=== PATIENT | male | born 1985 | race Caucasian/White ===

== ENCOUNTER 2019-01-14 18:37 | Emergency (ER) | payer OTHER, SELFPAY ==
[2019-01-14 18:38] VITALS: BP 160/100; PULSE 111; RESP 18; TEMP 36.8; O2SAT 99; BMI 26.1
[2019-01-14] MEDS: Ondansetron 4 MG/2 ML Vial IV (19:00)
[2019-01-14] MEDS: Morphine 4 MG/ML Syringe IV ×2 (19:00→19:57)
[2019-01-14] MEDS: Diphth,Pertuss(Acell),Tet Vac 0.5 ML Vial IM (19:08)
[2019-01-14] MEDS: Cefazolin 1 GM/50 ML BAG IV (19:08)
--- NOTE | 2019-01-14 19:15 | ED.VIS.GEN ---
History of Present Illness Chief Complaint: Laceration Informant: Patient, Significant Other Onset: Today Context: Sudden Onset Timing: Continuous Quality: Pain Location: Right long and ring finger Current Severity: Mild Maximum Severity: Moderate Worsened by: Movement Relieved by: Nothing Associated Symptoms: Amputation tips of right long and ring finger Narrative: Patient is a 33-year-old [id number] male who presents with injury to his right long and ring finger. He attempted to clear the [email or web address] shoot because it was clogged. The motor was running. He amputated the tip of his right ring finger and injured the right long finger. Immunization is greater than 10 years. He reports no antibiotic allergy. He reports no other injury. Prior similar symptoms: No Recent Illness/Hospitalization: No - Past Medical History (1) No significant past medical history Status: Acute Past Medical History - Allergies and Home Meds Allergies/Adverse Reactions: Allergies No Known Allergies Allergy (Verified 01/14/19 18:47) Primary Care Physician: Porfirio Hampton DO [STAFF PHYSICIAN] - Prior records reviewed: Yes Lives: Spouse/ Significant Other Smoking Status: Current every day smoker Drugs: None Review of Systems General: Denies: Chills, Fever, Malaise, Subjective, Sweats Gastrointestinal: Reports: Nausea. Denies: Vomiting Musculoskeletal: Reports: Extremity Pain. Denies: Myalgias, Arthralgias, Neck pain, Back pain, Swelling Skin: Reports: Wounds. Denies: Rash Neurological: Denies: Weakness, Parasthesia, Numbness Allergy: Denies: Uticaria, Swelling of the mouth Physical Exam Vital Signs/Narrative: Vital Signs Temp Pulse Resp BP Pulse Ox 01/14/19 18:38 98.3 F 111 H 18 160/100 H 99 Inital Vital Signs reviewed: Yes General: Well nourished, Well developed, Acute Distress Head: Normocephalic, Atraumatic Eyes: Perrl, EOMI. Negative for: Pale conjunctiva, Scleral icterus Neck: Supple, Nontender Cardiovascular: Regular rhythm, No murmurs, Normal S1, Normal S2, Tachycardia Respiratory: No distress, CTA bilaterally Extremities: No edema, - - Amputation distal DIP joint right ring finger. Nail bed injury and avulsion left long finger. The extensor commonest tendon is intact to the right long and ring finger. The flexor digitorum superficialis and flexor digitorum profundus is intact right long finger. The flexor digitorum superficialis intact right ring finger. Unable to assess flexor digitorum profundus on the right ring finger.. Negative for: Nontender Skin: Normal color, Trauma. Negative for: No rash, Cyanosis, Diaphoresis, Jaundice Neurological: Alert, Oriented x3, Cranial nerves II-XII grossly intact, Normal Strength, Normal Sensation Psychological: Normal affect, Normal Mood Diagnostic/Tx/Re-eval Chest X-Ray - ED: Read by ED Physician, - - There is a comminuted distal phalanx fracture right long finger and a comminuted and amputated distal phalanx fracture right ring finger. - Medical Decision Making We will obtain x-ray to delineate extent of injury to the right long and ring finger. Patient received tetanus update and 1 g of Ancef. Median nerve block was placed to control pain. He also received 4 mg of morphine and 4 mg of Zofran IV push. Procedures Procedure(s): Initially a median nerve block was placed. Patient had suboptimal results. For this reason each digit was anesthetized with 1% lidocaine. Once appropriate anesthesia was achieved the wounds were irrigated. Each digit was irrigated with 250 cc of normal saline. The distal phalanx of the right ring finger was trimmed back using a rondure. Able to cover the remaining portion of the distal phalanx. Simple interrupted sutures were placed using 5-0 Ethilon. The long finger was approximated on the radial side. There was no exposure of the distal phalanx. There is significant nailbed injury with avulsion of the nail. ED Disposition - Plan for ED Patient: Diagnosis: Open fracture of distal phalanx of ring finger, Partial traumatic transphalangeal amputation of right ring finger, initial encounter, Open distal phalanx fracture right long, Nail avulsion and nailbed injury right l Instructions: FRACTURE, Finger (Open), NAIL AVULSION, Complete Prescriptions: Cephalexin [Keflex] 500 mg PO 4X/DAY #20 cap Prescription Printed Oxycodone HCl/Acetaminophen [Percocet 5/325] 1 tab PO Q6H PRN PRN 3 Days #12 tab PRN Reason: Pain Prescription Printed Referrals: Porfirio Hampton DO [STAFF PHYSICIAN] - Tor Espinoza MD [STAFF PHYSICIAN] - 2 Days for wound check
--- NOTE | 2019-01-14 19:25 | RAD_ITS ---
STUDY: X-RAY - RIGHT HAND REASON FOR EXAM: Male, 33 years old. Hand caught in lawnmower. Attention third and fourth digits. TECHNIQUE: 3 view(s) of the hand. COMPARISON: None. FINDINGS: Normal radiocarpal articulation. Normal distal radioulnar joint. Normal visualized carpal bones. Normal carpal articulations Normal carpometacarpal articulation of the thumb. Normal second through fifth carpometacarpal joints. Normal metacarpi. Normal metacarpophalangeal joint of the thumb. Normal interphalangeal joint of the thumb. Normal proximal and distal phalanges of the thumb. Normal metacarpophalangeal joints of the second through fifth fingers. Normal proximal and distal interphalangeal joints of the second through fifth fingers. There is a nondisplaced, comminuted fracture of the tuft of the third distal phalanx. A longitudinal component extends to the base of the phalanx, with likely intra-articular extension. There is amputation of the distal fourth digit, with loss of the tuft. Comminuted fragments of the mid shaft are present. The soft tissue structures are unremarkable. RAD/Hand Min 3 Views IMPRESSION: 1. Amputation of the tuft of the fourth distal phalanx with comminuted shaft fragments. 2. Comminuted fracture of the third distal phalanx with a fracture line extending proximally to the articular surface. Electronically Signed: Cornelia Rucker MD at 20:58 EDT Tel , Service support ,
[2019-01-14] MEDS: LORazepam 2 MG/ML Syringe 0.5 MG IV (20:19)
--- NOTE | 2019-01-14 20:32 | ED.RN ---
DR. ANGULO INFORMED OF PT PAIN. NO NEW ORDERS AT THIS TIME WILL CONTINUE TO MONITOR.
[2019-01-14] MEDS: HYDROmorphone 0.5 MG/0.5 ML SYRINGE IV ×3 (20:48→22:45)
[2019-01-14 20:53] VITALS: BP 143/108; PULSE 98; RESP 17; O2SAT 99
[2019-01-14 21:46] VITALS: BP 151/98; PULSE 94; RESP 20; O2SAT 98
[2019-01-14 23:58] VITALS: BP 150/100; PULSE 90; RESP 18; O2SAT 98
[2019-01-15] MEDS: oxyCODONE 5 MG Tablet PO (00:04)
== END 2019-01-15 00:38 | disposition home or self-care (01) ==
PROVIDERS: Emergency Provider Emergency Medicine; Family Provider Family Medicine; PCP Family Medicine
DX: S68.624A Partial traumatic transphalangeal amputation of right ring finger, initial encounter (principal); S62.632B Displaced fracture of distal phalanx of right middle finger, initial encounter for open fracture; W31.89XA Contact with other specified machinery, initial encounter; Y93.H9 Activity, other involving exterior property and land maintenance, building and construction; Y92.9 Unspecified place or not applicable; F17.200 Nicotine dependence, unspecified, uncomplicated
CPT/HCPCS: 26951; 11750; 11760; 73130; 90471; 90715; 96365; 96375; 96376; 99285; J7050; A4216; J2405

== ENCOUNTER → 2020-07-15 09:06 | Outpatient (CLI) | payer BC, SELFPAY ==
[2020-07-15 10:40] LABS: Anion Gap 4 (5-15); BUN 19 mg/dL (7-18); BUN/Creat Ratio 17.3 RATIO (10-20); Chloride 104 mmol/L (98-107); Cholesterol 222 mg/dL (200); EST Glomerular Filtration Rate 82 mL/min (>60); Est Glom Filt Rate - Afr Amer 99 mL/min (>60); Glucose 109 mg/dL (74-106); High Density Lipoprotein 38 mg/dL; Potassium 4.3 mmol/L (3.5-5.1); Sodium Level 136 mmol/L (136-145); Triglycerides 97 mg/dL; Very Low Density Lipoprotein 19 mg/dL (5-40)
[2020-07-15 10:43] LABS: Vitamin D,25 Hydroxy 25.7 ng/mL
== END ==
PROVIDERS: PCP Family Medicine; Referring Provider Family Medicine; Visit Provider Family Medicine
DX: Z00.00 Encounter for general adult medical examination without abnormal findings (principal)
CPT/HCPCS: 36415; 80048; 80061; 82306

== ENCOUNTER → 2020-10-20 | Outpatient (CLI) | payer BC, SELFPAY ==
[2020-10-13 15:38] VITALS: BMI 25.1
--- NOTE | 2020-10-20 09:30 | VAS_PTH ---
PATIENT: ELIZABETH ESPOSITO LOC: [facility] U#:[id number] AGE/SX: 35/M ROOM: RE10/20/[address]: Dr. Noé Stein MD : 1985 BED: DIS: 10/20/2020 SPEC #: [id number] RECD: 10/20/20 11:08 STATUS: SHAUNA RESabina #: [id number] JOHANA: 10/20/20 09:[address]: Noé Stein DEPT: SURGICAL PATHOLOGY RECD BY: Manda Coombs ENTERED: 10/20/20 12:14 SP TYPE: VAS OTHR DR: Dr. Flo Killian MD Tissues: A - Vas deferens, NOS B - Vas deferens, NOS Procedures: Surgery Specimen Level II HEADER OPERATION: Bilateral partial vasectomy PRE-OP DIAGNOSIS: Sterilization TISSUE SUBMITTED: A - Right vas deferens, B - Left vas deferens MICROSCOPIC DIAGNOSIS A. Right vas deferens, partial vasectomy: Completely transected segment of vas deferens, no pathologic diagnosis. B. Left vas deferens, partial vasectomy: Completely transected segment of vas deferens, no pathologic diagnosis. MERCY:jhonny 10/21/2020 MICROSCOPIC DESCRIPTION Slides are reviewed. GROSS DESCRIPTION A - Received is one container designated right vas deferens. The specimen consists of a tubular segment of mayfield soft tissue measuring 1.5 cm in length and 0.3 cm in diameter. The entire specimen is submitted in one cassette. It will be sectioned at the time of embedding. B - Received is one container designated left vas deferens. The specimen consists of a tubular segment of mayfield soft tissue measuring 2 cm in length and 0.3 cm in diameter. The entire specimen is submitted in one cassette. It will be sectioned at the time of embedding. / MERCY:jhonny 10/20/20 TC:4 CPT: 14377 x2
== END | disposition home or self-care (01) ==
LOC: LABSPEC 11:39
PROVIDERS: PCP Family Medicine; Referring Provider Surgery; Visit Provider Surgery
DX: Z30.2 Encounter for sterilization (principal)
CPT/HCPCS: 88302

== ENCOUNTER → 2021-01-03 | Outpatient (CLI) | payer BC, SELFPAY ==
[2020-10-13 15:38] VITALS: BMI 25.1
[2021-01-04 13:11] LABS: Semen Analysis Post Vas REVIEWED
== END | disposition home or self-care (01) ==
LOC: LABSPEC 14:37
PROVIDERS: PCP Family Medicine; Referring Provider Surgery; Visit Provider Surgery
DX: Z30.2 Encounter for sterilization (principal)
CPT/HCPCS: 89321

== ENCOUNTER → 2021-02-23 | Outpatient (CLI) | payer BC, SELFPAY ==
[2020-10-13 15:38] VITALS: BMI 25.1
[2021-02-24 14:06] LABS: Semen Analysis Post Vas ABSENT
== END | disposition home or self-care (01) ==
PROVIDERS: PCP Family Medicine; Visit Provider Surgery
DX: Z30.2 Encounter for sterilization (principal)
CPT/HCPCS: 89321

== ENCOUNTER → 2021-03-24 09:23 | Outpatient (CLI) | payer BC, SELFPAY ==
[2021-03-24 12:40] LABS: Cholesterol 238 mg/dL (200); High Density Lipoprotein 43 mg/dL; Triglycerides 100 mg/dL; Very Low Density Lipoprotein 20 mg/dL (5-40)
== END ==
PROVIDERS: PCP Family Medicine; Visit Provider Family Medicine
DX: E78.5 Hyperlipidemia, unspecified (principal)
CPT/HCPCS: 36415; 80061

== ENCOUNTER 2022-10-27 13:59 | Inpatient (IN) | payer OTHER, SELFPAY ==
[2022-10-27 13:59] VITALS: BP 175/107; PULSE 118; RESP 16; TEMP 36.9; O2SAT 98; BMI 25.1
--- NOTE | 2022-10-27 14:26 | EX.ED.UPPERE ---
HPI <JN Montoya - Last Filed: 10/27/22 21:03> History of Present Illness Chief Complaint: Upper Extremity Injury Narrative Narrative: Patient presenting today with concerns for infection in his left hand. He states that he accidentally stabbed his hand with a screwdriver on Saturday. He did not get evaluated after this incident. Yesterday he began to notice swelling to the area as well as erythema. Today he noticed streaking up his left arm. He denies having any chronic health conditions. He denies any recent antibiotics, fever, chills, abdominal pain, nausea, and vomiting. He states his tetanus has been updated in the last 5 years. PFSH <JN Montoya - Last Filed: 10/27/22 21:03> [facility] Medical History ADHD Encounter for sterilization Home Medications lisdexamfetamine 30 mg capsule 30 mg PO DAILY 01/14/19 [History Last Taken Unknown] Allergy/AdvReac Type Severity Reaction Status Date / Time No Known Allergies Allergy Verified 10/27/22 14:02 Family History (Updated 10/27/22 @ 19:[address] Vin Ramirez MD) Mother No problems noted. Surgical History History of vasectomy (~09/2020) Hx of hand surgery Social History Smoking Status: Current some day smoker tobacco type: cigarettes alcohol intake: current alcohol intake frequency: holidays/special occasions only substance use type: does not use caffeine: Yes what type of physical activity do you participate in: none and other frequency: other ROS <JN Montoya - Last Filed: 10/27/22 21:03> ROS ED Constitutional Constitutional ED: Denies chills, fever(s) or sweats Eyes Eyes: Denies blurry vision or diplopia Cardiovascular Cardiovascular: Denies chest pain or palpitations Respiratory/Chest Respiratory/Chest: Denies cough, dyspnea, tachypnea or wheezing Gastrointestinal Gastrointestinal: Denies abdominal pain, constipation, diarrhea, nausea or vomiting Musculoskeletal Musculoskeletal: Reports arthralgias; Denies myalgias Integumentary Denies abscess Neurologic Neurologic: Denies dizziness or weakness Psychiatric Psychiatric: Denies anxiety, depression, suicidal ideation or suicidal thoughts EXAM <JN Montoya - Last Filed: 10/27/22 21:03> Physical Exam Const Vital Signs: 10/27/22 13:59 Temperature 98.4 F Temperature Source Temporal Pulse Rate 118 H Respiratory Rate 16 Blood Pressure 175/107 H Blood Pressure Mean 129 Pulse Ox 98 Oxygen Delivery Method Room Air Positive well nourished, well developed and no apparent distress General Appearance ED: well developed HEENT Reports normocephalic and head/scalp atraumatic Mouth ED: Yes moist mucous membranes normal Eyes PERRL and EOMs intact bilaterally Neck full ROM and supple Chest Wall inspection of chest normal Resp normal respiratory effort and clear to auscultation bilaterally Cardio regular rate and regular rhythm GI soft to palpation, non-tender, non-distended and no masses Back/Spine normal ROM and normal to inspection Extremity full ROM Extremity Narrative: Erythema and edema to patient's left hand, there is lymphatic streaking up patient's left arm to L bicep. There is a penetration wound in center of L palm. Decreased flexion to patient's second and third fingers due to pain swelling. Neuro oriented x3, CN's II-XII intact bilaterally, moves all extremities, no focal motor deficits and no sensory deficits noted Sensorium / Orientation: awake and alert Psych mental status grossly normal and thought process normal Skin no rashes or lesions noted and no wounds MDM <JN Montoya - Last Filed: 10/27/22 21:03> [facility] Narrative Medical decision making narrative: Patient presenting today with concerns for infection in his left hand. He does have a puncture wound in the middle of his palm on the volar surface. There is some mild edema to the area as well as erythema, there is lymphatic streaking up to the left bicep. Patient has a difficult time flexing second and third finger due to the edema. Patient was started on Unasyn and vancomycin. Wound culture was obtained. Labs obtained to assess for leukocytosis. X-ray obtained and does not show any acute abnormality. Patient has been given several rounds of pain control here in the emergency department. Attending ED physician has talked to Dr. Morrison who states that he would be willing to see patient. Concern for deep space infection. He will be admitted to the hospital in stable condition and is comfortable with plan. I have personally performed a face to face assessment of the patient and have reviewed the SHELIA Note. I performed a substantive portion of the visit including all aspects of the following. My henderson findings include: History is [patient presents to the emergency department with pain, redness, swelling of his left hand. Patient states that he was using a screwdriver while at work and accidentally punctured his left hand. This happened 6 days ago. Patient did not seek attention at that time. Since yesterday has noticed increased pain, redness, swelling and redness going up the left arm. He denies fevers or chills or sweats. He is right-hand dominant. Up-to-date on tetanus.] Exam is [TOSHA, EOMI. Cranial nerves II through XII grossly intact. TMs clear. Mucous membranes moist. No adenopathy. Cardiovascular-regular rate and rhythm without murmur or ectopy Lungs-clear to auscultation, chest wall stable without crepitus or subcu emphysema Abdomen-normoactive bowel sounds, soft, nontender, no rebound or rigidity, no peritoneal signs. Extremities-intact ?4. Left hand-patient has a small puncture wound mid palm between the second and third metacarpals on the volar surface. He has some diffuse soft tissue swelling of the palm over the volar and dorsal aspects. Decreased range of motion in flexion of the index and long finger. Patient does have small amount of purulent and serous fluid expressed from the puncture wound. There is some redness and lymphangitic streaking up the left arm to the bicep.] Medical Decison Making [patient started empirically on Unasyn and vancomycin. X-rays will be ordered and basic labs will be obtained.] I discussed case with Dr. Raina Don who is on for orthopedics for no doc and he recommended transferring the patient given that he felt patient might require a hand surgeon and he could not appropriately take care of the patient here at [facility]. I discussed case with Dr. Espinoza who is not available and is out of town. I discussed case with [facility] as well as [facility] and they did not have beds available. I discussed case with hospitals in [place] who either did not have hand surgeons or space available. Discussed case with [facility] and they do not have beds available. I noted that [facility] orthopedics surgeon on-call was Dr. Morrison and discussed case with him and he would be happy to see the patient in consultation. We will admit patient to hospitalist service with orthopedic evaluation by Dr. Morrison in the morning. Other additions or changes: [None] <Dr. Terri Pemberton, DO - Last Filed: 10/27/22 19:14> [facility] MDM Narrative Medical decision making narrative: I have personally performed a face to face assessment of the patient and have reviewed the SHELIA Note. I performed a substantive portion of the visit including all aspects of the following. My henderson findings include: History is [patient presents to the emergency department with pain, redness, swelling of his left hand. Patient states that he was using a screwdriver while at work and accidentally punctured his left hand. This happened 6 days ago. Patient did not seek attention at that time. Since yesterday has noticed increased pain, redness, swelling and redness going up the left arm. He denies fevers or chills or sweats. He is right-hand dominant. Up-to-date on tetanus.] Exam is [HEENT-PERRLA, EOMI. Cranial nerves II through XII grossly intact. TMs clear. Mucous membranes moist. No adenopathy. Cardiovascular-regular rate and rhythm without murmur or ectopy Lungs-clear to auscultation, chest wall stable without crepitus or subcu emphysema Abdomen-normoactive bowel sounds, soft, nontender, no rebound or rigidity, no peritoneal signs. Extremities-intact ?4. Left hand-patient has a small puncture wound mid palm between the second and third metacarpals on the volar surface. He has some diffuse soft tissue swelling of the palm over the volar and dorsal aspects. Decreased range of motion in flexion of the index and long finger. Patient does have small amount of purulent and serous fluid expressed from the puncture wound. There is some redness and lymphangitic streaking up the left arm to the bicep.] Medical Decison Making [patient started empirically on Unasyn and vancomycin. X-rays will be ordered and basic labs will be obtained.] I discussed case with Dr. Raina Don who is on for orthopedics for no doc and he recommended transferring the patient given that he felt patient might require a hand surgeon and he could not appropriately take care of the patient here at [facility]. I discussed case with Dr. Espinoza who is not available and is out of town. I discussed case with [facility] as well as [facility] and they did not have beds available. I discussed case with hospitals in [place] who either did not have hand surgeons or space available. Discussed case with [facility] and they do not have beds available. I noted that [facility] orthoped[facility] surgeon on-call was Dr. Morrison and discussed case with him and he would be happy to see the patient in consultation. We will admit patient to hospitalist service with orthopedic evaluation by Dr. Morrison in the morning. Other additions or changes: [None] Radiography Diagnostic Testing: Three-view x-ray left obtained interpreted by myself as no acute fractures and no evidence of foreign bodies. There was a mild soft tissue swelling. Radiology in agreement. Discharge Plan Dx/Rx/DC Orders Clinical Impression: Puncture wound of hand, Cellulitis of hand, left Disposition Disposition: Acute Care Hospital [facility]
[2022-10-27 14:46] LABS: Absolute Lymphocyte Count 0.93 X10^3/uL (0.83-4.51); Absolute Neutrophil Count 8.7 X10^3/uL (2.0-7.7); Basophil# 0.03 X10^3/uL; Basophil% 0.3 % (0-1); Eosinophil# 0.12 X10^3/uL; Eosinophils% 1.1 % (0-5); Hematocrit 44.2 % (40-54); Hemoglobin 15.6 g/dL (13.0-16.5); Lymphocyte # 0.93 X10^3/ul (0.83-4.51); Lymphocyte % 8.8 % (19-41); Mean Corp Hgb Conc 35.3 g/dL (32-36); Mean Corpuscular Hgb 33.1 pg (27.0-32.0); Mean Corpuscular Volume 93.8 fL (80-94); Mean Platelet Vol. 9.5 fl (6.2-12.0); Monocyte# 0.83 X10^3/uL; Monocyte% 7.8 % (0-10); NRBC Flagged by Analyzer 0 % (0-5); Neutrophil # 8.66 X10^3/uL (2.7-7.7); Neutrophil % 81.8 % (47-70); Platelet Count 205 K/mm3 (150-450); RBC Distribution Width CV 12.7 % (11.6-14.6); RBC Distribution Width SD 43.8 fl (35.1-43.9); Red Blood Count 4.71 M/mm3 (4.6-6.2); White Blood Count 10.6 K/mm3 (4.4-11.0)
[2022-10-27] MEDS: Morphine 4 MG/ML Syringe IV ×2 (14:55→17:33)
[2022-10-27 15:00] LABS: Anion Gap 7 (5-15); BUN 10 mg/dL (7-18); BUN/Creat Ratio 12.5 RATIO (10-20); Calcium,Total 9.1 mg/dL (8.5-10.1); Chloride 105 mmol/L (98-107); EST Glomerular Filtration Rate 117 mL/min (>60); Est Glom Filt Rate - Afr Amer 141 mL/min (>60); Estimated Creatinine Clearance 133.07 ml/min; Glucose 98 mg/dL (74-106); Potassium 3.4 mmol/L (3.5-5.1); Sodium Level 136 mmol/L (136-145)
--- NOTE | 2022-10-27 15:05 | RAD_ITS ---
STUDY: XR Hand Min 3 Views REASON FOR EXAM: Male, 37 years old. 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 FINDINGS: Normal radiocarpal articulation. Normal distal radioulnar joint. Normal visualized carpal bones. Normal carpal articulations Normal carpometacarpal articulation of the thumb. Normal second through fifth carpometacarpal joints. Normal metacarpi. Normal metacarpophalangeal joint of the thumb. Normal interphalangeal joint of the thumb. Normal proximal and distal phalanges of the thumb. Normal metacarpophalangeal joints of the second through fifth fingers. Normal proximal and distal interphalangeal joints of the second through fifth fingers. Normal phalanges of the second through fifth fingers. There is non specific soft tissue swelling around the thenar eminence. RAD/Hand Min 3 Views IMPRESSION: There is non specific soft tissue swelling around the thenar eminence. Electronically Signed: Alvino Pineda MD at 15:43 EDT ,
[2022-10-27 18:39] VITALS: BP 138/95; PULSE 72; RESP 14; O2SAT 99
[2022-10-27] MEDS: HYDROmorphone 1 MG/ML Syringe IV ×2 (19:09→23:34)
--- NOTE | 2022-10-27 19:19 | HP.PCM.HOS_ITS ---
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 Immediately after the puncture he had pain and dark blood coming from his hand. A day before presentation he developed more pain at his left hand. He rated his pain as 8 on a scale of 1 to 10. He describes the pain as dull and pounding. At the ED morphine IV did not help with his pain. With dilaudid he had relieve from pain. Associate with his symptoms is erythema and swelling of his left had. Making a fist or attempting to straighten the palms of his left hand worsens the pain. He denies any fever of chills. He denies anorexia. He had a tetanus shots about 4 years ago. [facility] Medical History ADHD Back pain due to injury Bleeding tendency Encounter for sterilization History of stress test Hypertension Injury of head and neck Smoker Home Medications lisdexamfetamine 30 mg capsule 30 mg PO DAILY add 01/14/19 [History Last Taken 10/27/22 06:00] multivitamin 1 tablet PO/SL DAILY Supplement 10/27/22 [History Last Taken 10/27/22 06:00] Allergy/AdvReac Type Severity Reaction Status Date / Time No Known Allergies Allergy Verified 10/27/22 14:02 Family History Mother No problems noted. Surgical History History of vasectomy (~09/2020) Hx of hand surgery Social History Smoking Status: Current some day smoker tobacco type: cigarettes alcohol intake: current alcohol intake frequency: holidays/special occasions only substance use type: does not use caffeine: Yes what type of physical activity do you participate in: none and other frequency: other ROS ROS Narrative Pertinent positives and pertinent negatives as noted in HPI. All other systems were reviewed and are negative Vital Signs Vital Signs Vital Signs: 10/27/22 13:59 10/27/22 18:39 Temperature 98.4 F Temperature Source Temporal Pulse Rate 118 H 72 Respiratory Rate 16 14 Blood Pressure 175/107 H 138/95 H Blood Pressure Mean 129 109 Pulse Ox 98 99 Oxygen Delivery Method Room Air Weight Weight: 79.469 kg Body Mass Index (BMI) 25.1 Physical Exam Narrative Physical exam: General: Well-nourished, well-developed. Head: Normocephalic, atraumatic, no tenderness Eyes: Vision is grossly intact. EOMI ENT, no trauma, moist mucous membranes, no rhinorrhea Neck: Nontender, No thyromegaly. CVS: Regular rate and rhythm. S1-S2 present. No murmur, gallop or rub. Respiratory : clear to auscultation bilaterally, chest wall nontender Abdomen: Soft, nontender, nondistended, normal bowel sounds, no masses : Deferred Back: Nontender, no CVA tenderness, no midline spinal tenderness, deformities, step-offs Extremities: Swelling of the left. Puncture wound in the palm of the left hand. Erythema of left hand. Difficulty with apposition with fifth and fourth finger of the left hand. Skin: Normal color, no trauma, abrasions Neuro: Alert, oriented, cranial nerves II through XII grossly intact. Psychiatry: Normal mood. Normal affect. Not depressed. Not anxious. Results Medical Records Data Attestation: I reviewed the patient's medical records Lab / Micro Data Attestation: I reviewed the patient's lab results. Result Diagrams: 10/27/22 14:40 10/27/22 14:40 Labs: Laboratory Results - last 24 hr 10/27/22 14:40: WBC 10.6, RBC 4.71, Hgb 15.6, Hct 44.2, MCV 93.8, MCH 33.1 H, MCHC 35.3, RDW Std Deviation 43.8, RDW Coeff of Pari 12.7, Plt Count 205, MPV 9.5, Immature Gran % (Auto) 0.200, Neut % (Auto) 81.8 H, Lymph % (Auto) 8.8 L, [place] % (Auto) 7.8, Eos % (Auto) 1.1, Baso % (Auto) 0.3, Absolute Neuts (auto) 8.7 H, Absolute Lymphs (auto) 0.93, Nucleated RBC % 0 10/27/22 14:40: Sodium 136, Potassium 3.4 L, Chloride 105, Carbon Dioxide 24.0, Anion Gap 7, BUN 10, Creatinine 0.80, Estim Creat Clear Calc 133.07, Est GFR (MDRD) Af Amer 141, Est GFR (MDRD) Non-Af 117, BUN/Creatinine Ratio 12.5, Glucose 98, Calcium 9.1 Radiology Impression Hand X-Ray 10/27/22 15:05 IMPRESSION: There is non specific soft tissue swelling around the thenar eminence. Electronically Signed: Alvino Pineda MD at 15:43 EDT , Assessment & Plan Assessment/Plan (1) Puncture wound of hand: (2) Cellulitis of hand, left: PLAN: Plan Puncture wound of left hand/cellulitis of left Started on vancomycin and Unasyn in the emergency department and continued. Emergency department doctor discussed the case with Dr. Patel, orthopedic surgeon who will follow. Culture was obtained at the emergency department; follow CBC showed mild white count elevation. Pain control with as needed Tylenol; as needed oxycodone and as needed Dilaudid. Trend CBC and BMP ADHD Stable Lisdexamfetamine continued DVT prophylaxis Subcutaneous Lovenox ordered. Charges/Coding Visit Charges Inpatient E&M: 83872 Init Hosp L2
[2022-10-27 19:27] VITALS: BP 154/101; PULSE 96; RESP 16; TEMP 37.3; O2SAT 98
[2022-10-27 20:40] VITALS: BMI 24.0
[2022-10-27 21:18] VITALS: BP 140/94; PULSE 95; RESP 16; TEMP 37.9; O2SAT 99
[2022-10-27] MEDS: oxyCODONE 5 MG Tablet 10 MG PO (21:26)
[2022-10-27] MEDS: Acetaminophen 325 MG Tablet 650 MG PO (21:26)
[2022-10-27 21:59] VITALS: BMI 24.0
--- NOTE | 2022-10-27 22:06 | PCM.RX.CS ---
Consult Pharmacy has been consulted to manage selected antiobiotic: Vancomycin Type of Consult: New start Suspected Infection: Skin/Soft tissue Prior Doses of Antibiotics Received/Current Regimen: Medications Vancomycin HCl (Vancomycin) 1,000 mg in 200 mls @ 200 mls/hr IV Q8H WM Discontinued Medications Vancomycin HCl 1,250 mg/ (Sodium Chloride) 275 mls @ 167 mls/hr IV X1 ONE Stop: 10/27/22 16:09 Last Admin: 10/27/22 17:36 Dose: Infused Labs: Sodium 136 mmol/L (136-145) 10/27/22 14:40 Potassium 3.4 mmol/L (3.5-5.1) L 10/27/22 14:40 Chloride 105 mmol/L (98-107) 10/27/22 14:40 Carbon Dioxide 24.0 mmol/L (21.0-32.0) 10/27/22 14:40 Anion Gap 7 (5-15) 10/27/22 14:40 BUN 10 mg/dL (7-18) 10/27/22 14:40 Creatinine 0.80 mg/dL (0.70-1.30) 10/27/22 14:40 Est GFR (MDRD) Af Amer 141 mL/min (>60) 10/27/22 14:40 Est GFR (MDRD) Non-Af 117 mL/min (>60) 10/27/22 14:40 BUN/Creatinine Ratio 12.5 RATIO (10-20) 10/27/22 14:40 Glucose 98 mg/dL (74-106) 10/27/22 14:40 Weight used for dosin.2 kg Estimated Creatinine Clearance: 133 Goal Trough: 15-20 mcg/mL Pharmacy Plan for Drug Dosing: Pharmacy Service will continue to monitor and adjust dosing as required. Follow-Up Labs: Trough Vancomycin Labs to be done on [date and time ordered]: 10/28/22 @1500
[2022-10-27] MEDS: 0.9% Saline Lock 10 ML Syringe IV ×2 (22:49→23:34)
[2022-10-27 23:02] VITALS: TEMP 37.1
[2022-10-28] VITALS (11 sets, daily range): BP systolic 115–141; BP diastolic 69–96; PULSE 74–106; RESP 16; TEMP 36.6–37; O2SAT 94–99
[2022-10-28] MEDS: Vancomycin IV 1,000 MG/200 ML BAG 200 MG IV ×3 (00:04→15:31)
[2022-10-28] MEDS: HYDROmorphone 1 MG/ML Syringe IV ×2 (04:40→09:24)
[2022-10-28] MEDS: 0.9% Saline Lock 10 ML Syringe IV ×2 (04:42→09:24)
--- NOTE | 2022-10-28 05:00 | EKG12_ITS ---
Test Reason : AM EKG Blood Pressure : / mmHG Vent. Rate : 072 BPM Atrial Rate : 072 BPM P-R Int : 134 ms QRS Dur : 100 ms QT Int : 366 ms P-R-T Axes : 034 088 000 degrees QTc Int : 400 ms Normal sinus rhythm Normal ECG No previous ECGs available Confirmed by GARLAND GRAHAM, DEVIN ([id number]), digital editor MAGALY WINSTON ([id number]) on 10/31/2022 10:22:26 AM Referred By: JAMES Confirmed By:KIMBER HAQUE MD
[2022-10-28] MEDS: Acetaminophen 325 MG Tablet 650 MG PO (05:40)
[2022-10-28] MEDS: oxyCODONE 5 MG Tablet 10 MG PO ×3 (05:40→21:37)
[2022-10-28 06:23] LABS: Absolute Lymphocyte Count 1.48 X10^3/uL (0.83-4.51); Absolute Neutrophil Count 5.8 X10^3/uL (2.0-7.7); Basophil# 0.04 X10^3/uL; Basophil% 0.5 % (0-1); Eosinophil# 0.44 X10^3/uL; Hematocrit 42.4 % (40-54); Hemoglobin 14.3 g/dL (13.0-16.5); Lymphocyte # 1.48 X10^3/ul (0.83-4.51); Lymphocyte % 16.9 % (19-41); Mean Corp Hgb Conc 33.7 g/dL (32-36); Mean Corpuscular Hgb 32.4 pg (27.0-32.0); Mean Corpuscular Volume 96.1 fL (80-94); Mean Platelet Vol. 9.8 fl (6.2-12.0); Monocyte# 0.98 X10^3/uL; Monocyte% 11.2 % (0-10); NRBC Flagged by Analyzer 0 % (0-5); Neutrophil # 5.79 X10^3/uL (2.7-7.7); Neutrophil % 66.2 % (47-70); Platelet Count 184 K/mm3 (150-450); RBC Distribution Width CV 13.1 % (11.6-14.6); RBC Distribution Width SD 46.5 fl (35.1-43.9); Red Blood Count 4.41 M/mm3 (4.6-6.2); White Blood Count 8.8 K/mm3 (4.4-11.0)
[2022-10-28 06:38] LABS: International Normalized Ratio 1.1; Partial Thromboplast Time 31.5 Seconds (24.1-36.2); Prothrombin Time (Protime)PT. 13.5 SECONDS (11.7-14.9)
[2022-10-28 06:48] LABS: Anion Gap 5 (5-15); BUN 13 mg/dL (7-18); BUN/Creat Ratio 17.8 RATIO (10-20); Calcium,Total 8.8 mg/dL (8.5-10.1); Chloride 105 mmol/L (98-107); Creatinine, Serum 0.73 mg/dL (0.70-1.30); EST Glomerular Filtration Rate 130 mL/min (>60); Est Glom Filt Rate - Afr Amer 157 mL/min (>60); Estimated Creatinine Clearance 145.83 ml/min; Glucose 107 mg/dL (74-106); Potassium 3.8 mmol/L (3.5-5.1); Sodium Level 136 mmol/L (136-145)
[2022-10-28 06:59] LABS: AST(SGOT) 15 U/L (15-37); Alanine Aminotransfer ALT/SGPT 24 U/L (16-61); Albumin, Serum 3.3 g/dL (3.2-5.0); Alkaline Phosphatase 81 U/L (45-117); Bilirubin, Direct 0.15 mg/dL (0.00-0.30); Globulin 3.4 g/dL (2.2-4.2); Protein, Total 6.7 g/dL (6.4-8.2)
--- NOTE | 2022-10-28 08:37 | CT_ITS ---
STUDY: CT LEFT HAND WITHOUT INTRAVENOUS CONTRAST REASON FOR EXAM: Male, 37 years old. hand abscess RADIATION DOSAGE (If Supplied By Facility): CTDIvol = ( 24.58 ) mGy, DLP = ( 695.82 ) mGycm TECHNIQUE: Thin section transaxial imaging of the hand was obtained, with sagittal and coronal reconstructed images. Intravenous contrast was administered. Individualized dose optimization techniques were used for this CT. COMPARISON: X-ray of the left hand dated October 27, 2022 FINDINGS: There is no demonstrated abscess of the subcutaneous tissues or muscles of the hand. Mild subcutaneous edema is present throughout the hand. No laceration or soft tissue air is seen. No significant tenosynovitis is present. There is no demonstrated acute fracture or displaced bony fragment. There is no evidence of osteomyelitis. Normal radiocarpal articulation. Normal distal radioulnar joint. Normal visualized carpal bones. Normal carpal articulations Normal carpometacarpal articulation of the thumb. Normal second through fifth carpometacarpal joints. Normal metacarpi. Normal metacarpophalangeal joint of the thumb. Normal interphalangeal joint of the thumb. Normal proximal and distal phalanges of the thumb. Normal metacarpophalangeal joints of the second through fifth fingers. Normal proximal and distal interphalangeal joints of the second through fifth fingers. Normal phalanges of the second through fifth fingers. The vessels normally enhance. CT/Extremity Upper WITH Contrast IMPRESSION: 1. Mild diffuse subcutaneous edema 2. There is no evidence of a soft tissue abscess or osteomyelitis Electronically Signed: Walter Bowser MD at 9:36 EDT ,
--- NOTE | 2022-10-28 09:31 | CONS.ORTHO ---
HPI Consult Data Date of Consult: 10/28/22 HPI Narrative HPI Narrative: ELIZABETH ESPOSITO, is a 37 M who presents approximately 1 week after he was installing a generator and had a Carr head screwdriver puncture his left palm in the interspace between the second and third metacarpals. He noted pain at that time but over the following 5 days or so he had no issues. Denies any antecedent issues with his left hand. 2 days ago, patient noted swelling, redness and streaking up his left arm with pain in his left axilla. He noted some chills at that time. He came to the emergency department yesterday 10/27/22. He was started on IV vancomycin and Unasyn. He was admitted under the service of the hospitalist and I was asked see patient in consultation. Saw patient this morning. He states redness in his left arm and forearm has improved dramatically overnight. He continues with pain mostly in the palm at the base of the index finger as well as some pain in the thumb and middle finger. Denies dorsal hand pain. Denies numbness or tingling. Denies fevers or chills at this time. [facility] Medical History ADHD Back pain due to injury Bleeding tendency Encounter for sterilization History of stress test Hypertension Injury of head and neck Smoker Home Medications lisdexamfetamine 30 mg capsule 30 mg PO DAILY add 01/14/19 [History Last Taken 10/27/22 06:00] multivitamin 1 tablet PO/SL DAILY Supplement 10/27/22 [History Last Taken 10/27/22 06:00] Allergy/AdvReac Type Severity Reaction Status Date / Time No Known Allergies Allergy Verified 10/27/22 14:02 Family History Mother No problems noted. Surgical History History of vasectomy (~09/2020) Hx of hand surgery Social History Smoking Status: Current some day smoker tobacco type: cigarettes alcohol intake: current alcohol intake frequency: holidays/special occasions only substance use type: does not use caffeine: Yes what type of physical activity do you participate in: none and other frequency: other ROS ROS Narrative 12 point review systems obtained, negative unless otherwise noted in HPI. Vital Signs Vital Signs Vital Signs: 10/27/22 13:59 10/27/22 18:39 10/27/22 19:27 Temperature 98.4 F 99.1 F Temperature Source Temporal Oral Pulse Rate 118 H 72 96 Pulse Strength Respiratory Rate 16 14 16 Respiratory Effort Respiratory Depth Respiratory Pattern Blood Pressure 175/107 H 138/95 H 154/101 H Blood Pressure Mean 129 109 118 Blood Pressure Source Blood Pressure Position Blood Pressure Location Pulse Ox 98 99 98 Oxygen Delivery Method Room Air Room Air 10/27/22 21:18 10/27/22 21:47 10/27/22 23:02 Temperature 100.2 F H 98.8 F Temperature Source Oral Oral Pulse Rate 95 Pulse Strength Normal (2+) Respiratory Rate 16 Respiratory Effort Respiratory Depth Respiratory Pattern Blood Pressure 140/94 H Blood Pressure Mean 109 Blood Pressure Source Monitor Blood Pressure Position Semi-Fowlers Blood Pressure Location Right Arm Pulse Ox 99 Oxygen Delivery Method Room Air 10/28/22 04:30 10/28/22 07:36 10/28/22 08:00 Temperature 98.5 F Temperature Source Oral Pulse Rate 78 Pulse Strength Normal (2+) Respiratory Rate 16 Respiratory Effort Respiratory Depth Respiratory Pattern Blood Pressure 133/73 H Blood Pressure Mean 93 Blood Pressure Source Monitor Blood Pressure Position Semi-Fowlers Blood Pressure Location Right Arm Pulse Ox 96 95 Oxygen Delivery Method Room Air Room Air 10/28/22 08:00 10/28/22 08:00 Temperature 97.8 F Temperature Source Oral Pulse Rate 81 Pulse Strength Respiratory Rate 16 Respiratory Effort Normal Respiratory Depth Normal Respiratory Pattern Normal Blood Pressure 117/84 H Blood Pressure Mean 95 Blood Pressure Source Monitor Blood Pressure Position Semi-Fowlers Blood Pressure Location Right Arm Pulse Ox 99 Oxygen Delivery Method Room Air Room Air Weight Weight: 167 lb 15.876 oz Body Mass Index (BMI) 24.0 Physical Exam Narrative General -A&Ox3, NAD, appears stated age. Vital signs stable, afebrile. Respiratory -normal work of breathing, no intercostal retractions. CV -pulses regular, brisk capillary refill ?4 limbs. Abdomen-soft, nontender, nondistended. No guarding, rigidity, rebound tenderness. Musculoskeletal/neurologic -full range of motion nontender throughout bilateral lower extremities, right lower extremity with full sensation and strength in all dermatomes and myotomes. No midline cervical tenderness. Left upper extremity-lymphangitic streaking skin markings have resolved in the left forearm and arm. He has mild tenderness to palpation in the left axilla with palpable lymphadenopathy. There is cellulitic rash noted along the left hand radial aspect, most notably in the palmar aspect with a granulated puncture wound between the second and third metacarpal heads. There is no palpable fluctuance or induration. He has fusiform swelling of his left index finger, pain with passive stretch, tenderness along the entirety of the flexor tendon sheath and the left index finger is held in slight flexion. He is mild tenderness to palpation at the A1 sapna of the thumb and long finger without significant pain with passive stretch, no fusiform swelling, no flexion posturing of the thumb and long fingers. There is no tenderness to palpation dorsally and in the second webspace. Brisk capillary refill in all the fingertips. Sensation intact to light touch in all dermatomes. Cardinal motions of the hand are intact. Radial pulse 2+. Lab / Micro Data Result Diagrams: 10/28/22 05:30 10/28/22 05:30 Labs: Laboratory Results - last 24 hr 10/27/22 14:40: WBC 10.6, RBC 4.71, Hgb 15.6, Hct 44.2, MCV 93.8, MCH 33.1 H, MCHC 35.3, RDW Std Deviation 43.8, RDW Coeff of Pari 12.7, Plt Count 205, MPV 9.5, Immature Gran % (Auto) 0.200, Neut % (Auto) 81.8 H, Lymph % (Auto) 8.8 L, [place] % (Auto) 7.8, Eos % (Auto) 1.1, Baso % (Auto) 0.3, Absolute Neuts (auto) 8.7 H, Absolute Lymphs (auto) 0.93, Nucleated RBC % 0 10/27/22 14:40: Sodium 136, Potassium 3.4 L, Chloride 105, Carbon Dioxide 24.0, Anion Gap 7, BUN 10, Creatinine 0.80, Estim Creat Clear Calc 133.07, Est GFR (MDRD) Af Amer 141, Est GFR (MDRD) Non-Af 117, BUN/Creatinine Ratio 12.5, Glucose 98, Calcium 9.1 10/28/22 05:30: WBC 8.8, RBC 4.41 L, Hgb 14.3, Hct 42.4, MCV 96.1 H, MCH 32.4 H, MCHC 33.7, RDW Std Deviation 46.5 H, RDW Coeff of Pari 13.1, Plt Count 184, MPV 9.8, Immature Gran % (Auto) 0.200, Neut % (Auto) 66.2, Lymph % (Auto) 16.9 L, [place] % (Auto) 11.2 H, Eos % (Auto) 5.0, Baso % (Auto) 0.5, Absolute Neuts (auto) 5.8, Absolute Lymphs (auto) 1.48, Nucleated RBC % 0 10/28/22 05:30: Sodium 136, Potassium 3.8, Chloride 105, Carbon Dioxide 26.0, Anion Gap 5, BUN 13, Creatinine 0.73, Estim Creat Clear Calc 145.83, Est GFR (MDRD) Af Amer 157, Est GFR (MDRD) Non-Af 130, BUN/Creatinine Ratio 17.8, Glucose 107 H, Calcium 8.8 10/28/22 05:30: PT 13.5, INR 1.1, APTT 31.5 10/28/22 05:30: Total Bilirubin 0.50, Direct Bilirubin 0.15, AST 15, ALT 24, Alkaline Phosphatase 81, Total Protein 6.7, Albumin 3.3, Globulin 3.4 Radiology Impression Hand X-Ray 10/27/22 15:05 IMPRESSION: There is non specific soft tissue swelling around the thenar eminence. Electronically Signed: Alvino Pineda MD at 15:43 EDT Reading Location ID and State: [facility] / [place] , Service support , Assessment & Plan Assessment/Plan (1) Puncture wound of hand: PLAN: 10/30 Kanavel's signs of left index finger flexor tenosynovitis CT scan with contrast reviewed from this morning, puncture wound appears to be line with flexor tendon to the index finger. Significant improvement in cellulitis and lymphangitis with IV antibiotics Given profound concern for flexor tenosynovitis, I recommended urgent irrigation and debridement of the left hand. I reviewed the risks, benefits, alternatives to procedure. Risks include but are not limited to bleeding, infection, loss of life or limb, need for additional surgery, persistent stiffness, neurovascular injury, nonhealing wounds, need for tenolysis, DVT or PE, risk of anesthesia. Patient expressed understanding these risks and wished to proceed with surgery. Informed consent obtained. Further recommendations pending surgery.
[2022-10-28] MEDS: Bupivacaine 0.25% 30 ML Vial (10:30)
--- NOTE | 2022-10-28 11:16 | OP.PCM_ITS ---
Report of Operation Date of Procedure: 10/28/22 Description of Surgical Findings:: Preoperative diagnosis: 1. Left hand puncture wound 2. Left index finger pyogenic flexor tenosynovitis 3. Left hand cellulitis Postoperative diagnosis: 1. Left hand puncture wound 2. Left index finger pyogenic flexor tenosynovitis 3. Left hand cellulitis Procedure: 1. Irrigation and excisional debridement left hand 2. Incision and drainage left index finger flexor tendon sheath Primary Surgeon: Helio Morrison DO Residential Green Building Designer: ROBERT Huerta Anesthesiologist: Dr. Escobar Anesthesia: General endotracheal Estimated blood loss: 20 cc IV fluids: 800 cc crystalloid Urine output: None Specimen: Purulent index finger flexor tendon sheath fluid sent for aerobic and anaerobic cultures Complications: None apparent Implants: None Packing/drains: None Preoperative indications: This is an otherwise healthy 37-year-old male who sustained a puncture injury to his left hand 1 week ago with a Carr head screwdriver while he was installing a generator. He noted pain at the puncture site which resolved throughout the week. Starting 2 days ago, he noted redness, swelling, pain with movement of his index finger, pain in the axilla as well as streaking up his left arm. He came to [facility] emergency department yesterday and was started on IV antibiotics, Unasyn and vancomycin. He was admitted under the service of the hospitalist for left hand cellulitis and swelling. I saw the patient in consultation this morning. He had findings highly concerning for left index finger flexor tenosynovitis. Based on skin markings, cellulitis and lymphangitis appeared to be improved with IV antibiotics and elevation of left arm. However, given the concern for flexor tenosynovitis despite 24 hours IV antibiotics, I recommended urgent surgical intervention with irrigation and debridement of the left hand. The risks, benefits, there is the procedure reviewed with the patient at length and he agreed to proceed. ?Risks include but are not limited to bleeding, infection, loss of life or limb, need for additional surgery, persistent stiffness, neurovascular injury, nonhealing wounds, need for tenolysis, DVT or PE, risk of anesthesia.? Patient expressed understanding these risks and wished to proceed with surgery. Description of procedure: Patient was identified in the preoperative holding area by name, medical record number, date of . The operative extremity was marked. All questions were answered to patient's satisfaction. At time of his procedure, patient brought to the op suite and positioned supine a standard operating table. General anesthesia was induced and endotracheal tube placed. A hand table was attached to patient's left side. All bony prominences were well-padded. We spun the bed 90 degrees. The left upper extremities prepped and draped in the normal, sterile orthopedic fashion. We performed timeout with all parties in attendance in agreement the side, site, operation be performed. No additional IV antibiotics were administered as patient had received scheduled vancomycin and Unasyn this morning. I first and my attention to the area of puncture wound which was in the flexor crease just proximal to the A1 sapna in the interspace between the index and long fingers. I made a 2 cm oblique incision in the flexor crease, ellipticized and the granulated puncture wound skin and subcutaneous tissue, measuring approximately 8 x 3 mm. I then bluntly dissected the subcutaneous plane. Palmar fascia was bluntly dissected through. No significant fluid was encountered. I then identified the flexor tendon sheath to the index finger. I used Littler scissors to gently open the flexor tendon sheath. Upon entering the flexor tendon sheath, purulent fluid was encountered and swabbed for culture. I then proceeded with percutaneous irrigation of the flexor tendon sheath. I made a transverse incision in the DIP flexion crease. I bluntly dissected down the level of the flexor tendon sheath. This was opened in line with the long axis of the finger. I then inserted a 14-gauge angiocatheter in the flexor tendon sheath through the proximal incision and irrigated through 500 cc of normal saline fluid. After approximately 100 cc of fluid, the irrigant draining from the distal incision was clear. Patient did have some tenderness and swelling along the flexor tendon proximally at the A1 sapna of the middle finger. I extended the proximal incision approximately 1 cm to gain access to the flexor tendon sheath of the long finger. This was opened gently with Littler scissors and no fluid was encountered. I elected to not irrigate the long finger tendon sheath due to absence of fluid and low concern for flexor tenosynovitis on clinical exam. I then thoroughly irrigated the proximal incision with normal saline. I performed a median nerve block at the wrist and field block with 20 cc total of 0.25% plain bupivacaine. I loosely closed the incisions with interrupted simple 4-0 Prolene suture. A bulky sterile dressing was applied. Patient was then awoken from anesthesia, safely extubated the operative suite. He was transferred to his hospital bed and subsequent to PACU in stable condition. Postoperative plan: Patient be nonweightbearing to the operative extremity. Strict elevation left upper extremity Agree with continuing vancomycin and Unasyn until cultures finalize. Maintain surgical dressing today, removed postoperative day number 1 in the AM and begin 3 times daily soap water soaks Multimodal pain management Possible discharge home tomorrow with cultures pending and further examination of the left hand tomorrow Plan to follow-up in 1 week in the office for recheck and possible suture removal
[2022-10-28] MEDS: Gabapentin 100 MG Capsule PO ×2 (11:49→16:38)
[2022-10-28] MEDS: Ketorolac 30 MG/ML Syringe IV ×2 (13:53→21:37)
[2022-10-28] MEDS: Acetaminophen 500 MG Tablet 1000 MG PO ×2 (13:56→23:04)
[2022-10-28 15:31] LABS: Vancomycin, Trough Level 10.2 ug/mL (5.0-15.0)
--- NOTE | 2022-10-28 16:23 | PCM.RX.CS ---
Consult Pharmacy has been consulted to manage selected antiobiotic: Vancomycin Type of Consult: Follow-up Labs: Sodium 136 mmol/L (136-145) 10/28/22 05:30 Potassium 3.8 mmol/L (3.5-5.1) 10/28/22 05:30 Chloride 105 mmol/L (98-107) 10/28/22 05:30 Carbon Dioxide 26.0 mmol/L (21.0-32.0) 10/28/22 05:30 Anion Gap 5 (5-15) 10/28/22 05:30 BUN 13 mg/dL (7-18) 10/28/22 05:30 Creatinine 0.73 mg/dL (0.70-1.30) 10/28/22 05:30 Est GFR (MDRD) Af Amer 157 mL/min (>60) 10/28/22 05:30 Est GFR (MDRD) Non-Af 130 mL/min (>60) 10/28/22 05:30 BUN/Creatinine Ratio 17.8 RATIO (10-20) 10/28/22 05:30 Glucose 107 mg/dL (74-106) H 10/28/22 05:30 Vancomycin Trough 10.2 ug/mL (5.0-15.0) 10/28/22 14:25 Microbiology: Microbiology 10/28/22 10:31 Tissue - Finger Gram Stain - Final 10/27/22 Unknown Wound - Left Hand Gram Stain - Final 10/27/22 Unknown Wound - Left Hand Wound Culture - Preliminary Streptococcus pyogenes Goal Trough: 15-20 mcg/mL Pharmacy Plan for Drug Dosing: VANCOMYCIN LEVEL RECEIVED Current Vancomycin Dose: 1000MG Q8 Number of Doses Received: 3 PROIR TO TROUGH, 1 AFTER TROUGH Vancomycin Level: 10.2 MG/DL Hours Since Last Dose: 8 Renal Function: SCR 0.73 MG/DL, CRCL >100 ML/MIN Renal Function Trend: STABLE Lab/Micro: PENDING Vancomycin Plan/Comments: 8 HOUR TROUGH IS SUBTHERAPEUTIC, WILL INCREASE DOSE TO 1500MG Q8. 1530 DOSE (1000MG) HAS ALREADY BEEN HUNG SO WILL START NEW DOSE AT 2330 AND GET A TROUGH PRIOR TO 4TH DOSE OF NEW REGIMEN. Pending Level: 10/29/22 @ 2300 Pharmacy Service will continue to monitor and adjust dosing as required.
--- NOTE | 2022-10-28 17:40 | PN.HOSP_ITS ---
Reason for Visit Reason for Visit: Diagnoses Cellulitis of left upper limb (10/27/22) Puncture wound without foreign body of unspecified hand, initial encounter (10/27/22) Subjective Subjective Patient was seen and examined today, he was taken to surgery for irrigation and incisional debridement of the left hand with incisional and drainage of the left index finger flexor tendon sheath. I talked briefly with orthopedic surgery about his care today. Patient denies any chronic medical problems to this examiner. Objective Data Objective Data Vital Signs: Vital Signs Temp Pulse Resp BP Pulse Ox O2 Del Method 98 F 89 16 126/82 H 97 Room Air 10/28/22 15:35 10/28/22 15:35 10/28/22 15:35 10/28/22 15:35 10/28/22 15:35 10/28/22 15:35 Oxygen Delivery Method Room Air Weight: 76.2 kg Body Mass Index (BMI) 24.0 Intake & Output: Intake and Output for Last 24 Hours 10/26/22 10/27/22 10/28/22 23:59 23:59 23:59 Intake Total 699 / 699 1248.5 / 1248.5 Balance 699 / 699 1248.5 / 1248.5 Lab / Micro Data Result Diagrams: 10/28/22 05:30 10/28/22 05:30 Labs: Laboratory Results - last 24 hr 10/28/22 05:30: WBC 8.8, RBC 4.41 L, Hgb 14.3, Hct 42.4, MCV 96.1 H, MCH 32.4 H, MCHC 33.7, RDW Std Deviation 46.5 H, RDW Coeff of Pari 13.1, Plt Count 184, MPV 9.8, Immature Gran % (Auto) 0.200, Neut % (Auto) 66.2, Lymph % (Auto) 16.9 L, [place] % (Auto) 11.2 H, Eos % (Auto) 5.0, Baso % (Auto) 0.5, Absolute Neuts (auto) 5.8, Absolute Lymphs (auto) 1.48, Nucleated RBC % 0 10/28/22 05:30: Sodium 136, Potassium 3.8, Chloride 105, Carbon Dioxide 26.0, Anion Gap 5, BUN 13, Creatinine 0.73, Estim Creat Clear Calc 145.83, Est GFR (MDRD) Af Amer 157, Est GFR (MDRD) Non-Af 130, BUN/Creatinine Ratio 17.8, Glucose 107 H, Calcium 8.8 10/28/22 05:30: PT 13.5, INR 1.1, APTT 31.5 10/28/22 05:30: Total Bilirubin 0.50, Direct Bilirubin 0.15, AST 15, ALT 24, Alkaline Phosphatase 81, Total Protein 6.7, Albumin 3.3, Globulin 3.4 10/28/22 14:25: Vancomycin Trough 10.2 Micro: Microbiology 10/28/22 10:31 Tissue - Finger Gram Stain - Final 10/27/22 Unknown Wound - Left Hand Gram Stain - Final 10/27/22 Unknown Wound - Left Hand Wound Culture - Preliminary Streptococcus pyogenes Radiography Diagnostic Testing: Radiology Impression Upper Extremity CT 10/28/22 08:37 IMPRESSION: 1. Mild diffuse subcutaneous edema 2. There is no evidence of a soft tissue abscess or osteomyelitis Electronically Signed: Walter Bowser MD at 9:36 EDT Reading Location ID and State: [facility] / [place] , Service support , Physical Exam Const alert, oriented x3, no apparent distress and healthy appearing General Appearance: cooperative, well kempt and well developed Orientation / Consciousness: awake, oriented to person, oriented to place and oriented to time HEENT normocephalic, head/scalp atraumatic and moist oral mucous membranes Eyes PERRL, EOMs intact bilaterally and conjunctivae normal Neck supple, no JVD, thyroid normal and no carotid bruits General: trachea midline Resp normal respiratory effort, no retractions, no use of accessory muscles and clear to auscultation bilaterally Auscultation: Negative for rales, rhonchi or wheezes Cardio regular rate, regular rhythm, S1 normal heart sound, S2 normal heart sound, no murmurs, no rub and no gallops GI normal to inspection, nondistended, normoactive bowel sounds, soft to palpation, non-tender and non-distended Extremity Extremity Narrative: There is generalized edema and tenderness of the left hand noted Neuro oriented x3, CN's II-XII intact bilaterally, moves all extremities, no focal motor deficits and no sensory deficits noted Sensorium / Orientation: awake and alert Speech: speech normal Psych affect normal Assessment & Plan Assessment/Plan (1) Cellulitis of hand, left: PLAN: Plan 1. Cellulitis of the left hand along with tenosynovitis-continue present antibiotic coverage, await culture result #2 ADHD-patient will be off his medications at this time for ADHD Total clinical time spent by myself addressing the patient's medical issues, reviewing all of his data, and collaborating with patient's care team: 25 minutes Charges/Coding Visit Charges Inpatient E&M: 50261 Subs Hosp L1
[2022-10-28] MEDS: Morphine 4 MG/ML Syringe IV (18:10)
[2022-10-28] MEDS: MELATONIN 3 MG TABLET PO (21:38)
[2022-10-29 00:06] VITALS: BP 115/60; PULSE 65; RESP 16; TEMP 36.5; O2SAT 97
[2022-10-29] MEDS: oxyCODONE 5 MG Tablet 10 MG PO (03:39)
[2022-10-29 03:42] VITALS: BP 115/69; PULSE 81; RESP 16; TEMP 36.4; O2SAT 96
[2022-10-29] MEDS: Acetaminophen 500 MG Tablet 1000 MG PO (06:13)
[2022-10-29] MEDS: Ketorolac 30 MG/ML Syringe IV (06:14)
[2022-10-29] MEDS: 0.9% Saline Lock 10 ML Syringe IV (06:22)
--- NOTE | 2022-10-29 07:01 | PCM.PN.ORT ---
Subjective Subjective Patient seen and examined. Denies any new complaints. Denies fevers, chills, nausea vomiting, chest pain or shortness of breath. Pain is continuing to improve. Objective Data Objective Data Vital Signs: Vital Signs Temp Pulse Resp BP Pulse Ox O2 Del Method 97.5 F L 81 16 115/69 96 Room Air 10/29/22 03:42 10/29/22 03:42 10/29/22 03:42 10/29/22 03:42 10/29/22 03:42 10/29/22 03:42 Oxygen Delivery Method Room Air Weight: 167 lb 15.876 oz Body Mass Index (BMI) 24.0 Intake & Output: Intake and Output for Last 24 Hours 10/27/22 10/28/22 10/29/22 23:59 23:59 23:59 Intake Total 699 / 699 2338.5 / 2841.25 1595.25 / 1595.25 Balance 699 / 699 2338.5 / 2841.25 1595.25 / 1595.25 Lab / Micro Data Result Diagrams: 10/28/22 05:30 10/28/22 05:30 Labs: Laboratory Results - last 24 hr 10/28/22 14:25: Vancomycin Trough 10.2 Micro: Microbiology 10/28/22 10:31 Tissue - Finger Gram Stain - Final 10/27/22 Unknown Wound - Left Hand Gram Stain - Final 10/27/22 Unknown Wound - Left Hand Wound Culture - Preliminary Streptococcus pyogenes Radiography Diagnostic Testing: Radiology Impression Upper Extremity CT 10/28/22 08:37 IMPRESSION: 1. Mild diffuse subcutaneous edema 2. There is no evidence of a soft tissue abscess or osteomyelitis Electronically Signed: Walter Bowser MD at 9:36 EDT Reading Location ID and State: [facility] / [place] , Service support , Physical Exam Narrative General - A&Ox3, NAD. VSS/AF. Left upper Extremity -erythema nearly resolved. Anticipated hand edema is noted. Cardinal motions of the left hand are intact. Sutures in place without dehiscence. No significant drainage. SILT & 5/5 in radial, ulnar, musculocutaneous, axillary nerve distributions. Diminished sensation in the median nerve distribution. Radial, ulnar pulses 2+. Compartments soft and compressible. BCR in finger tips. Assessment & Plan Assessment/Plan (1) Flexor tenosynovitis of finger: PLAN: POD#1 s/p left hand I&D with I&D of left index finger flexor tendon sheath - Pain control - Medicine following for medical management -OT ordered for range of motion and edema control left hand - DVT PPX - Lovenox, early mobilization -Stable for discharge from my standpoint. ER cultures growing group A strep. I will follow cultures as an outpatient if antibiotics need to be adjusted. Plan for discharge on Augmentin x14 days. Prescription for oxycodone and 4 days of Toradol sent to pharmacy. Follow-up with me in the office in 7 days. Patient educated about 3 times daily soaks, elevation and range of motion exercises.
[2022-10-29] MEDS: Gabapentin 100 MG Capsule PO (08:01)
[2022-10-29] MEDS: Multivitamins,Therapeutic Tablet 1 TABLET PO (08:01)
[2022-10-29 08:17] VITALS: O2SAT 95
--- NOTE | 2022-10-29 09:42 | DCINST_ITS ---
Discharge Instructions Diet Discharge Diet: No restrictions Activity Discharge Activity: Return to Normal Activity Weight Bearing Status: Full weight bearing Follow Up Care Test Results: Test results from this visit will be discussed in further detail at your follow- up appointment, if applicable. Discharge Plan Admission Admit Date/Time: 10/27/22 19:18 Primary Reason for Your Visit: left hand infection Attending Provider: Igor Barbosa Primary Care Provider: Flo Killian Consulting Providers: Helio Morrison ; Vin Ramirez Instructions Additional Instructions / Restrictions: Left hand: 3 times daily soap water soaks encouraging range of motion. Continue soaks until follow-up. Elevate left hand. Take antibiotics as prescribed. Notify Dr. Morrison if redness or swelling worsens before follow-up. Discharge Orders/Prescriptions Prescriptions: New ketorolac 10 mg tablet 10 mg PO Q6H 5 Days Qty: 20 0RF oxycodone 5 mg tablet 5 mg PO Q6H PRN (Reason: pain) 5 Days Qty: 20 0RF amoxicillin-pot clavulanate [Augmentin] 500-125 mg tablet 1 tab PO BID 14 Days Qty: 28 0RF Continued lisdexamfetamine 30 MG capsule 30 mg PO DAILY multivitamin 1 tablet PO/SL DAILY Referrals / Follow Up: Helio Morrsion DO [Med Staff - Active Staff] - 11/05/22 Flo Killian MD [Primary Care Provider] - See Referral Note (Next scheduled appointment time) Disposition Disposition (needs filled in before D/C Order can be placed): Home, Self Care
--- NOTE | 2022-10-29 09:45 | PCM.DC.SUM ---
Providers Date of Admission: 10/27/22 Date of Discharge: 10/29/22 Primary Care Physician: Dr. Flo Killian MD Consultations 10/27/22 21:08 Consult: Orthopedics Routine Consulting Provider: Helio Morrison Reason for Consult: Hand wound EMERGENT Consult: No MD Notified: Yes Date Notified: 10/27/22 Time Notified: 19:16 Method of Notification: ED Physician Initiated Reason For Visit: LEFT HAND WOUND INFECTION Diagnosis Discharge Diagnosis (1) Flexor tenosynovitis of finger: Status: Acute Code(s): M65.9 - Synovitis and tenosynovitis, unspecified Plan 1. Cellulitis of the left hand along with tenosynovitis-secondary to strep pyogenes-continue present antibiotic coverage, await culture result #2 ADHD-patient will be off his medications at this time for ADHD Total clinical time spent by myself addressing the patient's medical issues, reviewing all of his data, and collaborating with patient's care team: 25 minutes Medications at Discharge Home Medications lisdexamfetamine 30 mg capsule 30 mg PO DAILY add 01/14/19 multivitamin 1 tablet PO/SL DAILY Supplement 10/27/22 amoxicillin 500 mg-potassium clavulanate 125 mg tablet (Augmentin) 1 tab PO BID 14 days #28 tabs 10/29/22 ketorolac 10 mg tablet 10 mg PO Q6H 5 days #20 tabs 10/29/22 oxycodone 5 mg tablet 5 mg PO Q6H PRN pain 5 days #20 tabs 10/29/22 Hospital Course Operations - (Irrigation and excisional debridement of the left hand, incision and drainage left index finger flexor tendon sheath) Procedures None Summary of Care Provided Minutes Spent on Discharge: 30 Hospital Course: This 37-year-old white male was seen in the emergency room at [facility] due to concerns of infection in his left hand. Patient stated that he accidentally stabbed his hand with a screwdriver 6 days ago, he did not get evaluated after the incident, yesterday the patient stated that he began to notice swelling in the area of his left hand as well as erythema and decreased ability to make a fist in his left hand. Patient also noted streaking up his left arm today-the day he was seen in the emergency room. Patient denied any chronic health condition he does have ADHD. On examination, there was noted to be some edema in the left hand especially in the palmar aspect of the left hand. There was also a healing puncture wound noted to be present. There was also noted to be lymphatic streaking up the left bicep. Wound culture was obtained in the emergency room and he was started on antibiotics, x-ray obtained did not show any acute abnormality. Emergency room physician talked with orthopedic surgery who said that they would be willing to see the patient, he was admitted to the hospital and started on Unasyn and vancomycin. On 10/28/2022, patient was taken to surgery and irrigation and excisional debridement of the left hand was performed along with incision and drainage of the left index finger flexor tendon sheath. Patient tolerated the procedure well there were no untoward complications. Patient's wound culture grew out strep pyogenes 10/29/2022, patient was seen and examined: On examination he appeared in good health and spirits. Vital signs as documented. Skin warm and dry and without overt rashes. Left hand is wrapped with surgical dressing this was not removed for examination. Neck without JVD, neck was supple, trachea midline, thyroid was normal. Lungs clear bilaterally, normal air movement was noted. Heart exam notable for regular rhythm, normal sounds and absence of murmurs, rubs or gallops. Abdomen unremarkable and without evidence of organomegaly, masses, or abdominal aortic enlargement. Bowel sounds are present, abdomen is not distended. Extremities-left hand is wrapped with surgical dressing, no cyanosis was noted, no clubbing was noted. Neuro: Cranial nerves II through XII are grossly intact, no focal motor deficits were noted, sensation to light touch and pinprick intact, motor exam 5/5 throughout. Psych: Patient is alert and oriented x3, he does not appear anxious or depressed, he does not appear agitated. On 10/29/2022, patient was seen and examined and felt to be in stable condition for discharge home Weight / BMI Weight Weight: 76.2 kg Body Mass Index (BMI) 24.0 ABG / Lab / Microbiology Data Result Diagrams: 10/28/22 05:30 10/28/22 05:30 Laboratory: Laboratory Results - last 24 hr 10/28/22 14:25: Vancomycin Trough 10.2 Microbiology: Microbiology 10/27/22 Unknown Wound - Left Hand Gram Stain - Final 10/27/22 Unknown Wound - Left Hand Wound Culture - Final Streptococcus pyogenes 10/28/22 10:31 Tissue - Finger Gram Stain - Final D/C Instructions Discharge Diet: No restrictions Weight Bearing Status: Full weight bearing Meaningful Use Info Meaningful Use Diagnoses (Choose all that apply): None applicable Discharge Plan Admission Admit Date/Time: 10/27/22 19:18 Primary Reason for Your Visit: left hand infection Attending Provider: Igor Barbosa Primary Care Provider: Flo Killian Consulting Providers: Helio Morrison ; Vin Ramirez Instructions Additional Instructions / Restrictions: Left hand: 3 times daily soap water soaks encouraging range of motion. Continue soaks until follow-up. Elevate left hand. Take antibiotics as prescribed. Notify Dr. Morrison if redness or swelling worsens before follow-up. Discharge Orders/Prescriptions Prescriptions: New ketorolac 10 mg tablet 10 mg PO Q6H 5 Days Qty: 20 0RF oxycodone 5 mg tablet 5 mg PO Q6H PRN (Reason: pain) 5 Days Qty: 20 0RF amoxicillin-pot clavulanate [Augmentin] 500-125 mg tablet 1 tab PO BID 14 Days Qty: 28 0RF Continued lisdexamfetamine 30 MG capsule 30 mg PO DAILY multivitamin 1 tablet PO/SL DAILY Referrals / Follow Up: Helio Morrison DO [Med Staff - Active Staff] - 11/05/22 Flo Killian MD [Primary Care Provider] - See Referral Note (Next scheduled appointment time) Disposition Disposition (needs filled in before D/C Order can be placed): Home, Self Care Charges/Coding Visit Charges Inpatient E&M: 33729 Disch Hosp
[2022-10-29 09:58] VITALS: BP 112/76; PULSE 78; RESP 18; TEMP 36.8; O2SAT 98
[2022-10-29 10:01] VITALS: PULSE 78; RESP 18
[2022-10-29 10:08] VITALS: BP 112/76; PULSE 78; RESP 16; TEMP 36.8; O2SAT 98
--- NOTE | 2022-10-29 10:15 | CASEMGMT ---
RN?CM?PHYSICIAN ASSISTANT?CM?to room to meet with patient for initial transition planning/care coordination?assessment.?RN?CM?introduced self and role at [facility].? Pt voices understanding and consents to?assessment?at this time.? Pt sitting up in chair in room in no distress at this time.? Pt is A/O at this time and answers all questions appropriately.?? Care providers, pharmacy, and demographics verified/updated at this time. PCP: Dr Killian Specialists: none. Pt plans to f/u with Dr Morrison. [facility] Prescription Benefit:?yes Living Will/HPOA:? Pt does not currently have LW/HCPOA and declines info at this time.? Pt made aware that he can contact as an out-pt and make appt in the future if he decides he would like to talk with someone about this or would like to utilize [facility] social work for advanced directive completion.? LNOK: , [place] Living Arrangements: Lives w/ and 2 sons, ages 3 and 8. Independent. Transportation:?Pt states drives self and states no transportation concerns at this time. also drives. ? DME: ? Denies using any DME and denies needs.? HHC: Denies needs and no needs identified. Pt states he has been shown how to do soap water soaks and dressing changes and states is comfortable w/doing them. He states his can assist if needed. He is aware to contact Dr Morrison if he develops any s/sx's increased infection. Pt wishes to return home and states has no concerns with going home at time of discharge.? Pt voices no further concerns/needs at this time.? PLAN:??Home w/spousal support and discharge plans in place. Thuy FRAUSTON?RN?CM
--- NOTE | 2022-10-29 10:15 | CASEMGMT ---
RN?CM?ACT ENGLISH TUTOR?CM?to room to meet with patient for initial transition planning/care coordination?assessment.?RN?CM?introduced self and role at [facility].? Pt voices understanding and consents to?assessment?at this time.? Pt r in no distress at this time.? Pt is A/O at this time and answers all questions appropriately.?? Care providers, pharmacy, and demographics verified/updated at this time. PCP: Specialists: Preferred Pharmacy: Insurance: Prescription Benefit:? Living Will/HPOA:? Pt does not currently have LW/HCPOA and declines info at this time.? Pt made aware that he can contact SW as an out-pt and make appt in the future if he decides he would like to talk with someone about this or would like to utilize [facility] social work for advanced directive completion.? Given [employer] card with information and contact number. Pt expresses understanding.? States does not have LW or HCPOA .? Interested in more information but states does not want to talk with at this time to complete paperwork.? Provided information on advanced directives and given [employer] card with number to call if chooses in the future to utilize [facility] social work for advanced directive completion. Educated patient that, if patient so chooses, can come back to [facility] and meet with a SW as an outpatient to complete health care advanced directives. Patient expresses understanding. LNOK: Living Arrangements: Transportation:?Pt states drives self and states no transportation concerns at this time.? DME: ? Denies using any DME and denies needs.? States has the following DME:? Pt states no need for further DME at this time.? HHC/SNF: Pt wishes to return home and states has no concerns with going home at time of discharge.? Pt states does not smoke or drink ETOH.??CM?to follow for home oxygen needs and any further discharge planning/needs.? Pt voices no further concerns/needs at this time.? Advised pt to ask for?CM?if any further questions/concerns/needs arise.? Voices understanding. PLAN:?? Thuy BSN?RN?CM
--- NOTE | 2022-10-29 12:01 | PHA.DC.MR ---
Pharmacy Service has performed discharge medication reconciliation for this patient. The patient's discharge medication list was reviewed for discrepancies and discrepancies were resolved. Medication education papers prepared but patient was discharged before I was able to prenatal genetic counselor. Home Medications lisdexamfetamine 30 mg capsule 30 mg PO DAILY add 01/14/19 multivitamin 1 tablet PO/SL DAILY Supplement 10/27/22 amoxicillin 500 mg-potassium clavulanate 125 mg tablet (Augmentin) 1 tab PO BID 14 days #28 tabs 10/29/22 ketorolac 10 mg tablet 10 mg PO Q6H 5 days #20 tabs 10/29/22 oxycodone 5 mg tablet 5 mg PO Q6H PRN pain 5 days #20 tabs 10/29/22
== END 2022-10-29 11:00 | disposition home or self-care (01) | DRG 580 ==
LOC: ED 19:14 → MS3 19:49
PROVIDERS: Anesthesiology; Physician Assistant; Student in an Organized Health Care Education/Training Program; Admitting Provider Hospitalist; Emergency Provider Emergency Medicine; PCP Family Medicine; Visit Provider Internal Medicine
PROC: 0JBK0ZZ Excision of Left Hand Subcutaneous Tissue and Fascia, Open Approach (ICD-10-PCS; principal; 2022-10-28 09:45)
DX: S61.432A Puncture wound without foreign body of left hand, initial encounter (principal); L03.114 Cellulitis of left upper limb; F17.210 Nicotine dependence, cigarettes, uncomplicated; M65.842 Other synovitis and tenosynovitis, left hand; B95.0 Streptococcus, group A, as the cause of diseases classified elsewhere; W27.0XXA Contact with workbench tool, initial encounter; Y99.0 Civilian activity done for income or pay; F90.9 Attention-deficit hyperactivity disorder, unspecified type; Z79.899 Other long term (current) drug therapy
CPT/HCPCS: 36415; 73130; 73201; 80048; 80076; 80202; 85025; 85610; 85730; 87070; 87075; 87077; 87205; 93005; 94668; 97165; 99283; 99406; J7040; J7050; Q9967; A4216; J0295

== ENCOUNTER → 2023-06-17 | Outpatient (CLI) | payer OTHER, SELFPAY ==
[2023-06-17 13:11] LABS: AST(SGOT) 19 U/L (15-37); Alanine Aminotransfer ALT/SGPT 29 U/L (16-61); Albumin, Serum 3.9 g/dL (3.2-5.0); Alkaline Phosphatase 84 U/L (45-117); Anion Gap 8 (5-15); BUN 14 mg/dL (7-18); BUN/Creat Ratio 13.7 RATIO (10-20); Calcium,Total 9.2 mg/dL (8.5-10.1); Chloride 103 mmol/L (98-107); Cholesterol 205 mg/dL (200); Creatinine, Serum 1.02 mg/dL (0.70-1.30); EST Glomerular Filtration Rate 88 mL/min (>60); Est Glom Filt Rate - Afr Amer 106 mL/min (>60); Glucose 102 mg/dL (74-106); High Density Lipoprotein 38 mg/dL; Potassium 4.3 mmol/L (3.5-5.1); Protein, Total 7.9 g/dL (6.4-8.2); Sodium Level 136 mmol/L (136-145); Triglycerides 76 mg/dL; Very Low Density Lipoprotein 15 mg/dL (5-40)
== END | disposition home or self-care (01) ==
LOC: MFPLAB 09:52
PROVIDERS: PCP Family Medicine; Visit Provider Family Medicine
DX: E78.5 Hyperlipidemia, unspecified (principal)
CPT/HCPCS: 36415; 80053; 80061

== ENCOUNTER → 2025-03-12 | Outpatient (CLI) | payer OTHER, SELFPAY ==
[2025-03-12 10:33] LABS: Hematocrit 49.3 % (40-54); Hemoglobin 17.3 g/dL (13.0-16.5); Immature Granulocytes Count 0.020 X10^3/uL (0.0-0.0); Mean Corp Hgb Conc 35.1 g/dL (32-36); Mean Corpuscular Volume 99.8 fL (80-94); Mean Platelet Vol. 10.7 fl (6.2-12.0); NRBC Flagged by Analyzer 0 % (0-5); Platelet Count 245 K/mm3 (150-450); RBC Distribution Width CV 12.3 % (11.6-14.6); RBC Distribution Width SD 45.4 fl (35.1-43.9); Red Blood Count 4.94 M/mm3 (4.6-6.2); White Blood Count 6.6 K/mm3 (4.4-11.0)
[2025-03-12 10:52] LABS: AST(SGOT) 44 U/L (<=37); Alanine Aminotransfer ALT/SGPT 56 U/L (<=46); Albumin, Serum 4.3 g/dL (3.5-5.0); Alkaline Phosphatase 99 U/L (40-129); Anion Gap 12 (5-15); BUN 7 mg/dL (4-19); BUN/Creat Ratio 8.5 RATIO (10-20); Calcium,Total 9.4 mg/dL (7.6-11.0); Carbon Dioxide 24.8 mmol/L (21.0-32.0); Chloride 101 mmol/L (98-108); Globulin 3.0 g/dL (2.2-4.2); Glucose 121 mg/dL (70-99); Potassium 4.0 mmol/L (3.3-5.1)
== END | disposition home or self-care (01) ==
LOC: MTLAB 08:53
PROVIDERS: PCP Family Medicine; Referring Provider Family Medicine; Visit Provider Family Medicine
DX: Z00.00 Encounter for general adult medical examination without abnormal findings (principal)
CPT/HCPCS: 36415; 80053; 85025